=== PATIENT | female | born 1995 | race Caucasian/White ===

== ENCOUNTER 2019-10-17 11:56 | Emergency (ER) | payer OTHER ==
--- NOTE | 2019-10-17 12:05 | ER Document Report ---
ED Medical Screen (RME) - General Chief Complaint: Vaginal Bleeding Stated Complaint: BLEEDING/CRAMPING 5 WEEKS PREG Time Seen by Provider: 10/17/19 12:00 Mode of Arrival: Ambulatory Information source: Patient Notes: 24-year-old female presented to ED for complaint of last menstrual period was September 10, she is having vaginal bleeding pelvic pain and possible . She states she has had spotting for 3 days but today there was more bleeding and more clots. Pelvic pain is come and gone. She is 3 para 1. She is a former smoker no drink no drugs. Patient is alert oriented respirations regular and unlabored speaking in full sentences. I have greeted and performed a rapid initial assessment of this patient. A comprehensive ED assessment and evaluation of the patient, analysis of test results and completion of medical decision making process will be conducted by an additional ED providers. - Related Data Allergies/Adverse Reactions: No Known Allergies Allergy (Unverified 10/17/19 12:00) Home Medications: PNV Physical Exam - Vital signs Vitals: Temp Pulse Resp BP Pulse Ox 98.7 F 97 16 97/58 L 98 10/17/19 11:59 10/17/19 11:59 10/17/19 11:59 10/17/19 11:59 10/17/19 11:59 Course - Vital Signs Vital signs: Temp Pulse Resp BP Pulse Ox 98.7 F 97 16 97/58 L 98 10/17/19 11:59 10/17/19 11:59 10/17/19 11:59 10/17/19 11:59 10/17/19 11:59
[2019-10-17 12:32] LABS: ABSOLUTE EOSINOPHILS # (AUTO) 0.1 10^3/uL (0.0-0.6); ABSOLUTE LYMPHOCYTES (AUTO) 1.7 10^3/uL (0.5-4.7); ABSOLUTE MONOCYTES (AUTO) 0.4 10^3/uL (0.1-1.4); HEMATOCRIT 37.7 % (36.0-47.0); HEMOGLOBIN 13.3 g/dL (12.0-15.5); MEAN CORPUSCULAR HGB CONC 35.4 g/dL (32.0-36.0); TOTAL CELLS COUNTED % (AUTO) 100 %
[2019-10-17 12:44] LABS: APPEARANCE,URINE SLIGHTLY-CLOUDY; BILIRUBIN,URINE NEGATIVE (NEGATIVE); COLOR,URINE YELLOW; GLUCOSE, URINE NEGATIVE (NEGATIVE); KETONES,URINE NEGATIVE (NEGATIVE); LEUKOCYTE ESTERASE,URINE NEGATIVE (NEGATIVE); NITRITE,URINE NEGATIVE (NEGATIVE); PROTEIN,URINE 30 mg/dL (NEGATIVE); URINE SPECIFIC GRAVITY 1.025; UROBILINOGEN,URINE NEGATIVE mg/dL (<2.0)
[2019-10-17 12:45] LABS: ABSOLUTE NEUT (AUTO) 3.3 10^3/uL (1.7-8.2); BASOPHILS % (AUTO) 0.6 % (0-2); EOSINOPHILS % (AUTO) 1.4 % (0-6); LYMPHOCYTES % (AUTO) 30.9 % (13-45); MEAN CORPUSCULAR HEMOGLOBIN 31.8 pg (27.0-33.4); MEAN CORPUSCULAR VOLUME 90 fl (80-97); MONOCYTES % (AUTO) 7.2 % (3-13); PLATELET COUNT 238 10^3/uL (150-450); RED BLOOD COUNT 4.19 10^6/uL (3.72-5.28); RED CELL DISTRIBUTION WIDTH 12.9 % (11.5-14.0); SEGMENTED NEUTROPHILS % (AUTO) 59.9 % (42-78); WHITE BLOOD COUNT 5.5 10^3/uL (4.0-10.5)
[2019-10-17 12:56] LABS: ALBUMIN 4.4 g/dL (3.5-5.0); ALKALINE PHOSPHATASE 37 U/L (38-126); ANION GAP 10 (5-19); ASPARTATE AMINO TRANSFERASE 23 U/L (14-36); BILIRUBIN,TOTAL 0.5 mg/dL (0.2-1.3); BLOOD UREA NITROGEN 13 mg/dL (7-20); CARBON DIOXIDE 23 mmol/L (22-30); CHLORIDE 104 mmol/L (98-107); GLUCOSE 108 mg/dL (75-110); POTASSIUM 3.6 mmol/L (3.6-5.0); TOTAL PROTEIN 6.9 g/dL (6.3-8.2)
--- NOTE | 2019-10-17 14:05 | RADIOLOGY REPORT (SQ) ---
EXAM DESCRIPTION: U/S OB TRANSVAGINAL W/O DOP IMAGES COMPLETED DATE/TIME: 10/17/2019 1:54 pm REASON FOR STUDY: Last menstrual. September 10 pelvic pain vaginal bleed COMPARISON: None. TECHNIQUE: Transvaginal static and realtime grayscale images acquired of the pelvis. Additional donna cted spectral and color Doppler images recorded. All images stored on PACs. bHCG: Positive CLINICAL DATES: LMP 09/11/2019 LIMITATIONS: None. FINDINGS: FETUS: Single Living intrauterine . ULTRASOUND EGA: 5 weeks 2 days ULTRASOUND JAI: 06/16/2020 EFW: Not applicable less than 20 weeks. CRL: Not seen. FHR: Not seen. Beats per minute. SURVEY: Too early to assess. AMNIOTIC FLUID: Adequate amount. PLACENTA: Not yet developed due to early gestation. SUBCHORIONIC BLEED: No SIZE OF BLEED: Not applicable. UTERUS: No masses. No anomalies. CERVICAL LENGTH: 2.1 cm. Closed. RIGHT ADNEXA: Normal ovary with normal vascular flow. 2.6 x 2.9 x 2.7 cm No adnexal free fluid. No adnexal masses. LEFT ADNEXA: Normal ovary with normal vascular flow. 1.9 x 1.3 x 1.1 cm No adnexal free fluid. No adnexal masses. FREE FLUID: None. OTHER: No other significant finding. IMPRESSION: LIVING INTRAUTERINE . EGA 5 weeks 2 days by gestational sac size. pole is not yet seen. Follow-up as clinically ind icated. Trimester of : First trimester - 0 to 13 weeks. TECHNICAL DOCUMENTATION: JOB ID: [id number] [employer]- All Rights Reserved rev-10/08 Reading location - IP/workstation name: [email or web address] [email or web address]
[2019-10-17 15:01] VITALS: BP 112/64
--- NOTE | 2019-10-17 15:02 | ER Document Report ---
ED General - General Chief Complaint: Vag Bleeding, +preg <12wks Stated Complaint: BLEEDING/CRAMPING 5 WEEKS PREG Time Seen by Provider: 10/17/19 12:00 Mode of Arrival: Ambulatory Notes: 24-year-old female G3, P1 with last menstrual period on 09/11/2019 presenting today with vaginal bleeding and cramping. States she is having light spotting 2 days ago with mild lower abdominal cramping. Yesterday she reported one blood clot which made her concerned and brought her to the ER. Has had a positive test at home. States today that she is no longer having the spotting and that she is only experiencing thin discharge. She currently denies abdominal pain. Next appointment with OB is November 15. - Related Data Allergies/Adverse Reactions: No Known Allergies Allergy (Unverified 10/17/19 12:00) Home Medications: PNV Past Medical History - General Information source: Patient - Social History Smoking Status: Former Smoker Chew tobacco use (# tins/day): No Frequency of alcohol use: None Drug Abuse: None Family History: Reviewed & Not Pertinent Patient has homicidal ideation: No - Past Medical History Cardiac Medical History: Reports: None Pulmonary Medical History: Reports: None EENT Medical History: Reports: None Endocrine Medical History: Reports: None Renal/ Medical History: Reports: None Musculoskeletal Medical History: Reports None Psychiatric Medical History: Reports: None Review of Systems - Review of Systems Constitutional: No symptoms reported EENT: No symptoms reported Cardiovascular: No symptoms reported Respiratory: No symptoms reported Gastrointestinal: See HPI Genitourinary: No symptoms reported Female Genitourinary: See HPI Musculoskeletal: No symptoms reported Skin: No symptoms reported Physical Exam - Vital signs Vitals: Temp Pulse Resp BP Pulse Ox 98.7 F 97 16 97/58 L 98 10/17/19 11:59 10/17/19 11:59 10/17/19 11:59 10/17/19 11:59 10/17/19 11:59 Interpretation: Normal - Notes Notes: Adult General: GENERAL: Alert, interacts well. No acute distress HEAD: Normocephalic, atraumatic EYES: Pupils equal, round and reactive to light. Extraocular movements intact. ENT: Airway patent. Nares patent. NECK: Full range of motion. Supple. LUNGS: Clear to auscultation bilaterally, no wheezes, rales, or rhonchi. No respiratory distress. Nontender chest wall. HEART: Regular rate and rhythm. No murmurs, rubs or gallops. ABDOMEN: Soft, nontender. Nondistended. Bowel sounds present in all 4 quadrants. GENITOURINARY: Deferred EXTREMITIES: Moves all 4 extremities spontaneously. No edema, normal radial and dorsal pedis pulses bilaterally. No cyanosis. BACK: No cervical, thoracic, lumbar midline tenderness. Moves all extremities with full range of motion. NEUROLOGICAL: Alert and oriented x3. Normal speech. Strength 5/ 5 in all extremities. PSYCH: Normal affect, normal mood. SKIN: Warm, dry, normal turgor. No rashes or lesions noted. Course - Re-evaluation Re-evalutation: 10/17/19 19:41 Ultrasound shows viable intrauterine at approximately 5 weeks gestation. Cervical os is closed. Patient denies any additional spotting today. Recommend patient follow-up with OB within 1 week. She can return to the ER if she develops worsening symptoms or development of new symptoms. She is in agreement with plan and verbalizes understanding of plan. Patient is also anxious to leave the ER as she has to go tile picker her son. Results for quantitative hCG are pending. 10/17/19 19:44 10/17/19 19:45 - Vital Signs Vital signs: Temp Pulse Resp BP Pulse Ox 98.3 F 77 14 112/64 98 10/17/19 14:59 10/17/19 14:59 10/17/19 14:59 10/17/19 14:59 10/17/19 14:59 - Laboratory Result Diagrams: 10/17/19 12:15 10/17/19 12:15 Laboratory results interpreted by me: 10/17/19 10/17/19 10/17/19 12:15 12:15 12:15 Sodium 136.6 L Creatinine 0.48 L Alkaline Phosphatase 37 L Serum HCG, Qual POSITIVE H Beta HCG, Quant 4019.50 H Urine Protein 10/17/19 12:18 Sodium Creatinine Alkaline Phosphatase Serum HCG, Qual Beta HCG, Quant Urine Protein 30 H Discharge - Discharge Clinical Impression: Intrauterine , Vaginal bleeding before 22 weeks gestation Condition: Stable Disposition: HOME, SELF-CARE Instructions: Bleeding During Early ([facility]) Additional Instructions: You are being treated for vaginal bleeding during early . Your ultrasound showed a living intrauterine . Please follow up with your ob within one week. You may use tylenol otc for pain relief if needed. Return prec autions to include worsening abdominal pain, vaginal bleeding or development of new symptoms.
== END 2019-10-17 15:15 | disposition home or self-care (01) ==
LOC: ER 11:56
DX: O46.91 Antepartum hemorrhage, unspecified, first trimester (principal); O26.891 Other specified pregnancy related conditions, first trimester; R10.30 Lower abdominal pain, unspecified; Z3A.01 Less than 8 weeks gestation of pregnancy; Z87.891 Personal history of nicotine dependence
CPT/HCPCS: 36415; 76817; 80053; 81001; 84702; 84703; 85025; 86900; 86901; 99284

== ENCOUNTER 2020-06-02 15:14 | Emergency (ER) | payer OTHER ==
--- NOTE | 2020-06-02 16:09 | ER Document Report ---
ED Psych Disorder / Suicide - General Chief Complaint: Depression Stated Complaint: DEPRESSION Time Seen by Provider: 06/02/20 15:27 Notes: Patient is a 25-year-old female presents to the emergency department on IVC paperwork. Patient is currently 39 weeks . Patient states that she has felt depressed and told her that she was going to drive into a tree. She states that she has not had any motivation and does not have the energy to play with her 5-year-old son. Patient states that she is having Paul Jose contractions. Denies any constant contractions. States that she was seen by her [employer] [place] was leaking amniotic fluid, but they will not admit her until she is 6 cm dilated. LATER CLARIFICATION: PATIENT IS NOT LEAKING AMNIOTIC FLUID, SHE HAS VAGINAL DISCHARGE, DENIES GUSH OF FLUID - Related Data Allergies/Adverse Reactions: No Known Allergies Allergy (Unverified 10/17/19 12:00) Past Medical History - General Information source: Patient - Social History Smoking Status: Unknown if Ever Smoked Family History: Reviewed & Not Pertinent Review of Systems - Review of Systems Notes: REVIEW OF SYSTEMS: CONSTITUTIONAL : Denies recent illness. Denies recent unintentional weight loss. Denies fever, chills, or sweats. EENT: Denies eye, ear, throat, or mouth pain, discharge, or symptoms. Denies nasal or sinus congestion. CARDIOVASCULAR: Denies chest pain. RESPIRATORY: Denies shortness of breath, cough, congestion, difficulty breathing, or wheezing. GASTROINTESTINAL: Denies nausea, vomiting, and diarrhea. Denies abdominal pain. Denies constipation. GENITOURINARY: Denies difficulty urinating, burning, blood in urine, urgency or frequency. FEMALE GENITOURINARY: See HPI. MUSCULOSKELETAL: Denies neck and back pain. Denies joint pain or swelling. SKIN: Denies rash, itchiness, or lesions HEMATOLOGIC : Denies easy bruising or bleeding. LYMPHATIC: Denies swollen, painful, enlarged glands. NEUROLOGICAL: Denies no numbness or tingling denies weakness. Denies headache. Denies altered mental status. Denies alteration in speech. PSYCHIATRIC: Denies stress, anxiety, alteration in sleep patterns, or depression. All other systems reviewed and negative. Physical Exam - Vital signs Vitals: Temp Pulse Resp BP Pulse Ox 98.3 F 91 16 144/80 H 100 06/02/20 16:08 06/02/20 16:08 06/02/20 16:08 06/02/20 16:08 06/02/20 16:08 - Notes Notes: PHYSICAL EXAMINATION: GENERAL: Appears well, healthy, well-nourished, no acute distress. HEAD: Normocephalic, atraumatic. EYES: PERRL, conjunctiva normal, all extraocular movements intact, sclera nonicteric ENT: Moist mucous membranes. NECK: Supple, no noticeable swelling, redness, rash. Normal range of motion. LUNGS: Equal breath sounds bilaterally and clear to auscultation. No wheezes rales or rhonchi. CARDIOVASCULAR: S1-S2, regular rate, regular rhythm. Radial pulses 2+, normal. ABDOMEN: Normoactive bowel sounds. Soft, nontender, no guarding, no rebound tenderness, and no masses palpated. Appears about 39 weeks . EXTREMITIES: Normal strength and range of motion, no pitting or edema. No cyanosis. NEUROLOGICAL: Moves all extremities upon command. Strength 5/5 in all extremities. PSYCH: Tearful. SKIN: Warm, dry. No rash, lesions, ulcerations noted. Normal skin turgor. Course - Re-evaluation Re-evalutation: 06/02/20 18:06 Hematology shows a leukocytosis of 13,900. There is a left shift. Hemoglobin is 9.3. Patient does have a large amount of leukocytes in her urine. Patient is being treated for bacterial vaginosis. She is currently on Flagyl. We will send her urine for culture. We will also continue Flagyl. Urine toxicology is negative. Salicylates, acetaminophen, and alcohol are negative. Chemistries showed a glucose of 60. Patient was given juice and her blood sugar went up to 119. heart tones were done by myself and cardiac activity was noted on ultrasound. Fetus was moving also. - Vital Signs Vital signs: Temp Pulse Resp BP Pulse Ox 97.6 F 105 H 16 111/70 100 06/03/20 23:42 06/03/20 23:42 06/03/20 19:02 06/03/20 23:42 06/03/20 23:42 - Laboratory Results Result Diagrams: 06/02/20 16:29 06/02/20 16:29 Laboratory Results Interpreted: 0106/02/20 06/02/20 16:29 16:29 16:29 WBC 13.9 H Hgb 9.3 L Hct 28.7 L MCV 76 L MCH 24.9 L RDW 15.4 H Lymph % (Auto) 12.3 L Absolute Neuts (auto) 11.4 H Seg Neutrophils % 81.8 H Sodium 135.6 L Creatinine 0.49 L Glucose 60 L POC Glucose Alkaline Phosphatase 168 H Free T4 Urine Protein 30 H Ur Leukocyte Esterase LARGE H Salicylates < 1.0 L Acetaminophen < 10 L 06/02/20 06/02/20 16:29 17:53 WBC Hgb Hct MCV MCH RDW Lymph % (Auto) Absolute Neuts (auto) Seg Neutrophils % Sodium Creatinine Glucose POC Glucose 119 H Alkaline Phosphatase Free T4 0.66 L Urine Protein Ur Leukocyte Esterase Salicylates Acetaminophen Critical Laboratory Results Reviewed: No Critical Results - Radiology Results Critical Radiology Results Reviewed: No Critical Results - EKG Interpretation by Me Additional EKG results interpreted by me: 06/02/20 16:37 Sinus rhythm. Rate 81. OH 136; QRS 72; QT 348; QTc 404. No ST elevations or depressions noted. Discharge - Discharge Clinical Impression: Depression Qualifiers: Depression Type: depression during Trimester: third trimester Qualified Code(s): O99.343 - Other mental disorders complicating , third trimester Qualifiers: Weeks of gestation: 39 weeks Qualified Code(s): Z3A.39 - 39 weeks gestation of Condition: Stable Disposition: PSYCH HOSP/UNIT
[2020-06-02 17:10] LABS: ABSOLUTE LYMPHOCYTES (AUTO) 1.7 10^3/uL (0.5-4.7); ABSOLUTE MONOCYTES (AUTO) 0.7 10^3/uL (0.1-1.4); ABSOLUTE NEUT (AUTO) 11.4 10^3/uL (1.7-8.2); BASOPHILS % (AUTO) 0.3 % (0-2); EOSINOPHILS % (AUTO) 0.3 % (0-6); HEMATOCRIT 28.7 % (36.0-47.0); HEMOGLOBIN 9.3 g/dL (12.0-15.5); LYMPHOCYTES % (AUTO) 12.3 % (13-45); MEAN CORPUSCULAR HEMOGLOBIN 24.9 pg (27.0-33.4); MEAN CORPUSCULAR HGB CONC 32.5 g/dL (32.0-36.0); MEAN CORPUSCULAR VOLUME 76 fl (80-97); MONOCYTES % (AUTO) 5.3 % (3-13); PLATELET COUNT 278 10^3/uL (150-450); RED BLOOD COUNT 3.75 10^6/uL (3.72-5.28); RED CELL DISTRIBUTION WIDTH 15.4 % (11.5-14.0); SEGMENTED NEUTROPHILS % (AUTO) 81.8 % (42-78); TOTAL CELLS COUNTED % (AUTO) 100 %; WHITE BLOOD COUNT 13.9 10^3/uL (4.0-10.5)
[2020-06-02 17:17] LABS: APPEARANCE,URINE CLOUDY; BILIRUBIN,URINE NEGATIVE (NEGATIVE); COLOR,URINE YELLOW; GLUCOSE, URINE NEGATIVE (NEGATIVE); KETONES,URINE NEGATIVE (NEGATIVE); LEUKOCYTE ESTERASE,URINE LARGE (NEGATIVE); NITRITE,URINE NEGATIVE (NEGATIVE); PROTEIN,URINE 30 mg/dL (NEGATIVE); URINE SPECIFIC GRAVITY 1.023; UROBILINOGEN,URINE NEGATIVE mg/dL (<2.0)
--- NOTE | 2020-06-02 17:25 | PSYCHOLOGICAL NOTE ---
Psych Note - Psych Note Date seen by psych provider: 06/02/20 Time seen by psych provider: 16:08 - 1630 Psych Note: Reason for Consult: Suicidal ideation Clinician received phone call from [facility]. Upon arriving to scene, the patient was tearful. There is reported concern the patient made comments that she wanted to harm herself. Patient's is reportedly leaving for training (he is active duty) and the patient does not want to be home alone. She has a history of significant self harm in the past (ie cutting her throat just prior to current 9-10 months ago and intentional overdose about 3 years ago). Patient currently is 39 weeks . Impression/plan: Patient is currently under 24 hour petition for evaluation. Dr. Lee was consulted on the care and management of this patient; attending physician is in agreement with recommendations and disposition.
[2020-06-02 17:27] LABS: ALBUMIN 3.6 g/dL (3.5-5.0); ALKALINE PHOSPHATASE 168 U/L (38-126); ANION GAP 8 (5-19); ASPARTATE AMINO TRANSFERASE 21 U/L (14-36); BILIRUBIN,DIRECT 0.1 mg/dL (0.0-0.4); BILIRUBIN,TOTAL 0.3 mg/dL (0.2-1.3); BLOOD UREA NITROGEN 7 mg/dL (7-20); CALCIUM 8.8 mg/dL (8.4-10.2); CARBON DIOXIDE 22 mmol/L (22-30); CHLORIDE 106 mmol/L (98-107); TOTAL PROTEIN 6.5 g/dL (6.3-8.2)
[2020-06-02 17:29] LABS: URINE AMPHETAMINES SCREEN NEGATIVE; URINE BARBITURATES SCREEN NEGATIVE; URINE BENZODIAZEPINES SCREEN NEGATIVE; URINE COCAINE SCREEN NEGATIVE; URINE MARIJUANA (THC) SCREEN NEGATIVE; URINE METHADONE SCREEN NEGATIVE; URINE PHENCYCLIDINE SCREEN NEGATIVE
[2020-06-02 17:30] LABS: ACETAMINOPHEN < 10 ug/mL (10-30); ALCOHOL < 10 mg/dL (NONE DETECTED); POTASSIUM 4.5 mmol/L (3.6-5.0); SALICYLATE < 1.0 mg/dL (2.0-20.0)
[2020-06-02 17:31] LABS: GLUCOSE 60 mg/dL (75-110)
[2020-06-02] MEDS ORDERED: CEPHALEXIN 500 MG CAPSULE PO ONE (17:39)
[2020-06-02] MEDS ORDERED: HYDROXYZINE PAMOATE 50 MG CAPSULE PO ONE (19:39)
[2020-06-02] MEDS: METRONIDAZOLE 500 MG TABLET PO SCH (21:21)
[2020-06-02 21:36] LABS: FREE T3 3.09 pg/mL (2.77-5.27); FREE T4 (FREE THYROXINE) 0.66 ng/dL (0.78-2.19)
[2020-06-02 21:49] LABS: THYROID STIMULATING HORMONE 2.34 uIU/mL (0.47-4.68)
--- NOTE | 2020-06-02 22:40 | EKG REPORT ---
SEVERITY:- NORMAL ECG - SINUS RHYTHM : Confirmed by: Kayden Huerta 02-Jun-2020 22:40:33
[2020-06-02] MEDS ORDERED: MELATONIN 3 MG TABLET PO PRN (23:45)
--- NOTE | 2020-06-02 23:51 | ER Document Report ---
Doctor's Note Notes: 06/02/20 23:48 Was notified by nursing staff that patient has requested melatonin to help her sleep. Melatonin is not recommended in . Patient has received 50 mg of Vistaril 2 and half hours ago. Patient and nursing staff aware that we cannot give melatonin.
[2020-06-02] MEDS ORDERED: MELATONIN 3 MG TABLET PO ONE (23:59)
[2020-06-03] MEDS: METRONIDAZOLE 500 MG TABLET PO SCH ×5 (00:02→23:36)
--- NOTE | 2020-06-03 19:05 | ER Document Report ---
Doctor's Note Notes: 06/03/20 18:56 PHYSICAL EXAMINATION: GENERAL: Appears well, healthy, well-nourished, no acute distress. LUNGS: Equal breath sounds bilaterally and clear to auscultation. No wheezes rales or rhonchi. CARDIOVASCULAR: S1-S2, regular rate, regular rhythm. Radial pulses 2+, normal. ABDOMEN: Normoactive bowel sounds. Soft, nontender, no guarding, no rebound tenderness, and no masses palpated. Appears 39 weeks . PSYCH: Normal mood, normal affect. Yesterday the patient reported that she was leaking fluid from her vaginal area. She was able to clarify today that it was actually discharge that was coming out of her vaginal area. She was diagnosed with bacterial vaginosis, which I ended up putting her on Flagyl yesterday for. She states that she was never told that she had amniotic fluid leaking from her vagina. I expressed to the patient that she was in a moment of crisis yesterday and when you are in a moment of crisis, it is normal to not see what is actually happening. Patient denies any large gush of fluid from her vagina.
--- NOTE | 2020-06-03 19:10 | PSYCHOLOGICAL NOTE ---
Psych Note - Psych Note Date seen by psych provider: 06/03/20 Time seen by psych provider: 10:42 Psych Note: Reason for Consult: suicidal ideation with a plan Consent permissions: , Re-eval [id number] Patient was re-evaluated today in the ED. She states she last attempted suicide 10 months ago by cutting her neck. She denies receiving treatment after leaving [facility] after about 2 days. Patient denies current suicidal and homicidal ideation, plan, and intent. She reports she now has a life inside her and does not want to . She states she verbalized to her about being suicidal, but did not act on statements. Patient states she has things to get done before having her baby next Wednesday (one week from today) such as cleaning the house and getting her dog to the vet. Patient reports having lots of self-doubt and low self-esteem. Patient inquires how IVC works and stats she does not feel she needs to be IVC. Patient was informed how the IVC process works and why she meets criteria based on current situation and history of attempts as well. [id number] Checked back in with patient after being contacted by POD 4 nurse two times. Patient inquired for updates. She was informed at this time no changes have taken place. She is still on the IVC and that lasts 7 days. Clinician informed patient about IVC criteria and process and re-explained what was explained earlier in the day. Clinician informed patient her referral packet has not been sent to inpatient psychiatric hospitals and the behavioral health and medical teams were still assessing her and discussing a plan of care. At this time, patient was informed she will likely be staying another night and she will be updated if anything changes. Patient continued to state she does not want to go inpatient and wants to get therapy. Clinician explained 5-6 times that patients information is not being sent to inpatient hospitals at this time and that therapy will be recommended, however possibly getting one intake session before she is induced in one week will likely not be very effective or make a large difference. Patient asked for updates 5-6 times during discussion and was given the same answer from clinician: at this time she remains on IVC and discussion of her plan of care is in work with behavioral health and medical teams; given her situation of being 39 weeks , she is not likely to be accepted to inpatient hospitals and her referral has not been sent out; clinician will continue to meet with patient once a day in the morning and anytime an update occurs, patient will be notified first; at this time there are no changes and unless patient is given an update, plan to be at [facility] for a minimum of 7 days. Impression/plan: Patient is recommended for full IVC. She presented to the hospital yesterday with suicidal ideations and has a history of attempts. Patients mood was labile and unstable on the first night and there are significant concerns for her safety. Patient reportedly feels she cannot take c are of her son, however is 39 weeks and there are concerns for the safety of the baby in her womb at this time. There are ongoing concerns for patients attention seeking behaviors and impulsivity. She presents with Borderline personality disorder as reported by threatening suicide is common and she is attention seeking. Patient even admits to stating she was going to crash her car to get attention from her and have him care for her. Patient is not involved in psychiatric treatment and appears to have an unstable relationship with her spouse. Patient presents with attention seeking behaviors in the ED as on night one she was hysterical about her having to leave and the second day asking the nurse multiple times to speak to behavioral health even after being told she would be informed if there was an update for her. Dr. Lee was consulted on the care and management of this patient; attending physician is in agreement with recommendations and d isposition. Case management: [phone] 1533: Attempted to call Catheterization Laboratory Technician for patient as she mentioned possible involvement with log scaler if discharged from hospital. 1545: called Henry ([phone]) Attempted to call Henry, however no answer at time of call. [phone]: Catheterization Laboratory Technician Lt Anthony Gilbert called back He reports he has never met with patient, however her spouse is in his unit. He inquired about coming to the ED to talk and meet with patient as her spouse inquired about this. He is willing to come to the ED and talk if needed. He was informed that he is welcome to see patient if that is what she and her feel might be helpful. He was informed that patient is on IVC and is still being assessed and discussion is ongoing for next steps. Catheterization Laboratory Technician was mostly reach out offering to help if needed for patient. He states he cannot assume care of patient if she were to be discharged, however he can insurance counsel with patient as she is a dependent. [place] but [place] a counseling center for service members and families. Catheterization Laboratory Technician is willing to be involved with patient if she were to be discharged. He reports she and [place]/ check in sessions until therapy is established as a resource to patient. [id number] attempted to call patients Henry. No answer at time of call. [phone] Spoke to patients outside the room. He reports feeling safe taking patient home. He states he called 9-11 because he thought she left, however patient drove the car down the street and pulled over. He reports she makes verbal suicidal statements often due to wanting attention. He describes an I love you. I hate you relationship with him and patient where he reports After she stops freaking out, we are all mendoza-dovey again and things are good. He states he does not feel she was going to actually crash her car, especially after finding out she pulled over. He states they have verbal arguments often where patient expresses SI, but states once the situation calms down, she is in a better mood. He states she did cut her neck 10 months ago, but did not need stitches. He reports follow up therapy on the computer/ phone after that, but he does not know when that ended. He reports he is still working daily and getting off early to care for patients son. States the log scaler is interested in meeting with patient if she did not have a counselor set up. He reports there is a mistake and patient is actually voluntary, however it was explained to him how IVC works. He stated him and patient were confused and he was informed it was explained to patient multiple times. Clinician explained to criteria for IVC and how patient meets it due to current situation and history of suicide attempts. He was informed her referral packet has not been sent to psychiatric hospitals as it is unlikely of her getting accepted given her being 39 weeks . He was informed that patients current IVC is 7 days and this can be rescinded or extended when the 7 days is up. He was informed patient was told to plan to stay at [facility] for 7 days until she gets another update from behavioral health regarding treatment and IVC status. He reports calling log scaler, [employer], and for resources and help. He was informed therapy resources and mobile crisis will be given. called his friend, Troy Garcia, mother, Sury Mata, who has been helping him care for patients child. Sury reports she is able to stay with patient while spouse is working as part of discharge plan of care. He mentions history of hypo/ hyperthyroidism that is untreated. Also mentioned fluids leaking (has been passed to BUTCHER HELPER and nurse). Sury Zavala [phone]
[2020-06-03] MEDS ORDERED: MELATONIN 3 MG TABLET PO ONE (23:23)
[2020-06-04] MEDS: METRONIDAZOLE 500 MG TABLET PO SCH ×2 (06:31→12:21)
[2020-06-04 08:01] VITALS: BP 102/51
[2020-06-04] MEDS ORDERED: CALCIUM CARBONATE 500 MG TAB.CHEW PO ONE (10:21)
--- NOTE | 2020-06-04 12:37 | ER Document Report ---
Doctor's Note Notes: 06/04/20 12:16 PHYSICAL EXAMINATION: GENERAL: Appears well, healthy, well-nourished, no acute distress. LUNGS: Equal breath sounds bilaterally and clear to auscultation. No wheezes rales or rhonchi. CARDIOVASCULAR: S1-S2, regular rate, regular rhythm. Radial pulses 2+, normal. ABDOMEN: Normoactive bowel sounds. Soft, nontender, no guarding, no rebound tenderness, and no masses palpated. PSYCH: Normal mood, normal affect. Patient denies any suicidal or homicidal ideation. Mental health has developed a plan for the patient to follow-up with [facility] in with outpatient therapy. See their note. Follow-up precautions were given. Verbal discharge instructions were given to the patient. They verbalized understanding. They are stable for discharge.
--- NOTE | 2020-06-04 17:45 | PSYCHOLOGICAL NOTE ---
Psych Note - Psych Note Date seen by psych provider: 06/04/20 Time seen by psych provider: 10:43 Psych Note: Re-eval [id number] Patient was re-evaluated today in the ED. She reports feeling better. She was observed laughing and engaging with her who was at bedside. Patient states she does not want to . She denies suicidal ideation, plan, and intent. She states she wants to get home to her 5 year old son and prepare for her baby to come (being induced Wednesday). Discussion of safety plan took place. She was informed Sury would be contacted to stay with patient and states she does not usually go to others for help, but does feel comfortable with Sury coming to her home for the rest of the week as a road crossing guard while her is working. is at bedside and states he is working remotely today and will be going into work the rest of the week. Patient was given resources for mobile crisis, outpatient facilities, and [facility]. She inquired about taking her baby to therapy and how [facility] works. She inquired about mobile crisis as well. [facility] information was provided and [facility] crisis information. She was informed questions would be asked when clinician calls to make a therapy appointment. Collateral: 1111 called Sury Zavala- no answer at time of call 1112 called Assistant Art Director- he reports he will be part of discharge plan of care and tomorrow is available after 1100 to meet with patient. This has been relayed to patient and . They agree to contact him to set up a time to meet. 1114 Sury Zavala called back- she agrees to be part of discharge plan of care. Sury reports she has been through similar situations in the past with thyroid imbalances and states she is available all week to be with patient. Patients does not work this weekend and she is being induced Wednesday where he will have 14 days of baby leave. Sury states she will remain with patient while patients is working so that patient is not alone. Patient was alert and oriented to self, person, place, time and situation. Mood was euphoric with congruent affect. She denies suicidal and homicidal ideation, plan, and intent. Patient did not appear to be responding to internal stimuli as evidenced by fair eye contact and answering questions appropriately when addressed. Thought processes are linear and organized. Conversational speech was within normal limits for rate, tone and prosody. Intellectual abilities are estimated to be average. Insight, judgment, and impulse control were fair as evidenced by pulling car aside and not attempting to harm self and identifying she is attention seeking. Patient engages appropriately. She demonstrates future forward goal oriented thinking as she talks about meeting with roller skates assembler, going to therapy, and asking questions about therapy with her baby. Clinical Presentation: suicidal ideations IVC Criteria per MD GS 122C Dangerous to others Within the relevant past the individual No has inflicted or attempted to inflict or threatened to inflict serious bodily harm on another AND No that there is a reasonable probability that this conduct will be repeated. OR No has acted in such a way as to create a substantial risk of serious bodily harm to another AND No that there is a reasonable probability that this conduct will be repeated. OR No has engaged in extreme destruction of property AND NO that there is a reasonable probability that this conduct will be repeated. Previous episodes of dangerousness to others, when applicable, may be considered when determining reasonable probability of future dangerous conduct. Clear, cogent, and convincing evidence that an individual has committed a homicide in the relevant past is prima facie evidence of dangerousness to others. Dangerous to self Within the relevant past the individual has done any of the following: acted in such a way as to show ALL of the following: No The individual would be unable without care, supervision, and the continued assistance of others not otherwise available, to exercise self- control, judgment, and discretion in the conduct of the individual's daily responsibilities and social relations or to satisfy the individual's need for nourishment, personal or medical care, senior care, or self-protection and safety. AND No There is a reasonable probability of the individual suffering serious physical debilitation within the near future unless adequate treatment is given. A showing of behavior that is grossly irrational, of actions that the individual is unable to control, of behavior that is grossly inappropriate to the situation, or of other evidence of severely impaired insight and judgment shall create a prima facie inference that the individual is unable to care for himself or herself. OR Yes has attempted suicide or threatened suicide Patient threatened suicide and drove her car away, however parked on the side of the road AND No that there is a reasonable probability of suicide unless adequate treatment is given Patient denies current SI, plan, and intent; demonstrates future forward goal oriented thinking as she talks about meeting with Assistant Art Director, going to therapy, and getting the house cleaned and organized before the baby is born. OR No has mutilated himself or herself or attempted to mutilate himself or herself AND No that there is a reasonable probability of serious self-mutilation unless adequate treatment is given. NOTE: Previous episodes of dangerousness to self, when applicable, may be considered when determining reasonable probability of physical debilitation, suicide, or self-mutilation. Impression\plan: Patient is cleared from psychiatric services. Patient is recommended to rescind IVC. She was admitted to the ED for suicidal ideations with a plan to crash her car. Patient had been upset with her , brought her son to a friends house, and drove her car away, however parked it on the side of the road. She remained there with a family friend, Sury, until EMS arrived. Patient reports making suicidal gestures when she wants attention from her as he is bad with emotions and she wants to be cared for. Patient is attention seeking and states she does not like to be alone. Patient denies current suicidal ideation, plan, and intent. She demonstrates future forward goal oriented thinking as she inquires about her thyroid issues, wants to get the house cleaned and ready for the new babys arrival, inquires about therapy with a baby, plans to meet with roller skates assembler this week, and discusses going back to work in 1-2 months. There are ongoing concerns for patients attention seeking behaviors and impulsivity. She presents with Borderline personality disorder as reported by threatening suicide is common and happens often and she is attention seeking. Patient has attempted suicide two times in the past and is reportedly very attention seeking, per . Patient even admits to stating she was going to crash her car to get attention from her and have him care for her. Patient presents with attention seeking behaviors in the ED as on night one she was hysterical about her having to leave and the second day asking the nurse multiple times to speak to behavioral health even after being told she would be informed if there was an update for her. When clinician met with patient, she asked the same questions about the IVC process and what happens next to clinician after being explained multiple times how it works. Patient continued to want to engage with clinician after questions had been answered. Patient is not involved in psychiatric treatment and appears to have an unstable relationship with her spouse. Spouse reports they often argue and patient makes impulsive statements, however they make up soon after and are in a good place again. He denies any plans to separate or divorce. An appointment has been set for patient at [facility]. Her intake session is on 06.06.2020 at 1100 and she are recommended to arrive at least 15 minutes early with ID and drivers license. Patient is are highly recommended to attend this appointment and continue outpatient services with them. [facility] does offer tele services for therapy, but recommends in person sessions. Patient was given a community outpatient referral list to include phone numbers for [facility] and [facility] mobile crisis. [facility] information was also provided for you. Family friend, Sury, agrees to stay with patient all day while is at work. He goes back to work tomorrow and works Wednesday- Wednesday. He is off this weekend and Wednesday patient is scheduled to be induced. Patient and agree. The roller skates assembler for 's unit agrees to meet with patient for additional support until regular therapy sessions can be obtained. He is available tomorrow after 1100. Patient was informed if symptoms worsen or return to reach out to mobile crisis or return to the ED. Dr. Lee was consulted to care management of this patient; attending physicians in agreement with recommendations and disposition. [phone]- called Ms. Ga who reported patient was on her way to [facility]. Sury reported planning to stay the night with patient in hopes that separation from will be helpful. Ms. Ga was already aware patients left to go out drinking with friends and patient was alone. (Diya Nick spoke to patient prior to this call; documented in a mental health note)
== END 2020-06-04 13:02 | disposition home or self-care (01) ==
LOC: ER 15:14
DX: O99.343 Other mental disorders complicating pregnancy, third trimester (principal); R45.851 Suicidal ideations; Z3A.39 39 weeks gestation of pregnancy; O23.593 Infection of other part of genital tract in pregnancy, third trimester; B96.89 Other specified bacterial agents as the cause of diseases classified elsewhere
CPT/HCPCS: 93005; 99285; 36415; 84439; 82962; 80307 ×4; 84443; 85025; 80053; 81001; 84481; 93010; J3490